=== PATIENT | female | born 1955 | race Caucasian/White ===

== ENCOUNTER 2024-04-24 10:14 | Day surgery (SDC) | payer OTHER, SELFPAY ==
[2024-04-24] MEDS: LACTATED RINGERS 1,000 ML 100 ML IV (10:33)
--- NOTE | 2024-04-24 10:38 | PM.HP.1 ---
History of Present Illness History of Present Illness Chief complaint: Colonoscopy Narrative: Personal history of colon polyps with last colonoscopy negative over 5 years ago. Need for follow-up colonoscopy Meds Home Medications and Allergies Home Medications Medication Instructions Recorded Confirmed Type ezetimibe 10 mg tablet 10 mg PO DAILY 04/24/24 04/24/24 History metoprolol succinate 25 mg 25 mg PO DAILY 04/24/24 04/24/24 History tablet,extended release 24 hr Allergies Allergy/AdvReac Type Severity Reaction Status Date / Time No Known Drug Allergies Allergy Verified 04/24/24 10:35 Exam Narrative Exam Narrative: Oropharynx free of lesions Chest clear to auscultation percussion Cardiac exam reveals no S3 or murmur Assessment & Plan Assessment & Plan narrative: History of colon polyps need for follow-up colonoscopy. Risks, benefits, alternatives have been explained. Time-Based Coding :: [TOTAL MINUTES] spent with patient and on the chart (including review of chart, obtaining history, exam, reviewing outside data, placing orders, documenting exam and treatment plan, and counseling patient) on [DATE].
--- NOTE | 2024-04-24 10:40 | PM.OP.COLON ---
Operative Date/Time/Diagnoses Date of procedure: 04/24/24 Pre-op diagnosis: See indication and findings Procedure & Clinicians Study performed: Colonoscopy Indications: History of colon polyps Surgeon: Martín Long Procedure Notes Procedure in detail: After informed consent was obtained the patient was placed in left lateral decubitus position. The video colonoscope was introduced the rectum slowly advanced cecum. Preparation was good. On slow withdrawal mucosa was carefully examined. The scope was removed. The patient tolerated the procedure well. Blood loss none Complications none Sedation mac Findings 1. Normal colonoscopy to cecum Kyle should have follow-up colonoscopy in 5 years due to her family history of colon cancer.
[2024-04-24 10:48] VITALS: BP 165/98; PULSE 93; RESP 16; TEMP 36.6; O2SAT 98; BMI 25.7
[2024-04-24 11:39] VITALS: BP 132/83; PULSE 78; RESP 16; TEMP 36.3; O2SAT 92
[2024-04-24 11:44] VITALS: BP 146/85; PULSE 76; RESP 14; O2SAT 96
[2024-04-24 11:50] VITALS: BP 128/83; PULSE 75; RESP 18; O2SAT 94
[2024-04-24 11:52] VITALS: BP 125/85; PULSE 74; RESP 16; TEMP 36; O2SAT 95
== END 2024-04-24 12:08 | disposition home or self-care (01) ==
PROVIDERS: PCP Nurse Practitioner; Referring Provider Internal Medicine Gastroenterology; Visit Provider Internal Medicine Gastroenterology
PROC: 0DJD8ZZ Inspection of Lower Intestinal Tract, Via Natural or Artificial Opening Endoscopic (ICD-10-PCS; CPT 45378; principal; 2024-04-24 11:00)
DX: Z12.11 Encounter for screening for malignant neoplasm of colon (principal); Z86.010 Personal history of colon polyps
CPT/HCPCS: G0105; J2704